=== PATIENT | male | born 1995 | race Hispanic/Latino ===

== ENCOUNTER 2022-01-26 10:38 | Emergency (ER) | payer SELFPAY ==
[~2022-01-26] VITALS: Ht 177.8 cm; Wt 110.0 kg
[~2022-01-26 10:38] MED LIST: NAPROSYN500 MG PO
[2022-01-26 10:51] VITALS: BP 162/110
[2022-01-26 11:00] VITALS: BP 137/98
[2022-01-26 11:30] VITALS: BP 128/90
[2022-01-26] MEDS ORDERED: DEBROX6.5 % AS (12:29)
[2022-01-26 12:33] VITALS: BP 128/90
== END 2022-01-26 12:55 | disposition home or self-care (01) | DRG 156 ==
LOC: ED 10:38
PROC: 3E1B78Z Irrigation of Ear using Irrigating Substance, Via Natural or Artificial Opening (ICD-10-PCS; principal; 2022-01-26)
DX: H61.22 Impacted cerumen, left ear (principal); F17.210 Nicotine dependence, cigarettes, uncomplicated